=== PATIENT | male | born 1980 | race Caucasian/White ===

== ENCOUNTER 2018-02-22 13:29 | Emergency (ER) | payer OTHER, SELFPAY ==
[2018-02-22 13:30] VITALS: BP 133/83; PULSE 77; RESP 14; TEMP 36.8; O2SAT 95; BMI 30.4
--- NOTE | 2018-02-22 13:54 | ED.VISSUMM ---
- ER Visit Summary Date of Service: 02/22/18 Chief Complaint: [] Foreign body right ear History of Present Illness: The patient is a 37 M [] placed a piece of paper as an ear plug in his right ear he could not get down he presents complaining of foreign body today no pain no other complaints Physical Examination: [] Exam he has an obvious white foreign body consisting of paper in the right ear that was removed without difficulty the canal and the TM were unremarkable and the rest of his exam was unremarkable he felt better afterwards Test Results: [] Emergency Department Course and Treatment: [] Routine instructions given for the above follow-up with Treatment Plan: [] Disposition: [] Home stable Impression: [] Foreign body consisting of paper removed from right ear This note was generated with [employer] dictation software. It may contain incorrect words, spelling, and punctuation that were not noted in review of the chart prior to signing ED Disposition - Plan for ED Patient: Chief Complaint: Foreign Body Referrals: Roland Monreal MD [Primary Care Provider] -
--- NOTE | 2018-02-22 13:55 | ED.DEP ---
ED Disposition - Plan for ED Patient: Chief Complaint: Foreign Body Instructions: Foreign Object in the Ear or Nose Referrals: Roland Monreal MD [Primary Care Provider] -
== END 2018-02-22 14:22 | disposition home or self-care (01) ==
LOC: ED 14:22
PROVIDERS: Emergency Provider Emergency Medicine; Family Provider Family Medicine; PCP Family Medicine
DX: T16.1XXA Foreign body in right ear, initial encounter (principal); X58.XXXA Exposure to other specified factors, initial encounter; Y93.9 Activity, unspecified; Y92.9 Unspecified place or not applicable
CPT/HCPCS: 99282

== ENCOUNTER 2019-04-22 12:52 | Emergency (ER) | payer OTHER, SELFPAY ==
[2019-04-22 12:53] VITALS: BP 163/100; PULSE 71; RESP 16; TEMP 36.8; O2SAT 98; BMI 28.7
--- NOTE | 2019-04-22 14:09 | ED.VISSUMM ---
- ER Visit Summary Date of Service: 04/22/19 Chief Complaint: Right lower facial and lip laceration. History of Present Illness: The patient is a 38 M was cutting a tree that was down. When he cut it the tree sprang up and hit him on the right side of his lower face causing a laceration of the skin between his lip and chin and going through and through the inside of the mouth mucosa. He denies any LOC. He states he did not injure his dentition. He denies any other injuries. His tetanus is up-to-date within the last several years. Physical Examination: Well-appearing young male. Vital signs are stable afebrile. HEENT exam laceration 3 cm in the right lower face goes through into the right lower lip. Dentition is intact. No malocclusion. No intraoral swelling or significant tenderness or deformity. No malocclusion. I had him run his tongue across his teeth and he does not find any abnormalities. I am not tender. Trachea midline. Lungs clear to auscultation. Heart regular rhythm no murmur. Abdomen is soft and nontender. Extremities moves all 4. Neurovascular intact. Nontender. Neurologically he is awake and alert with no focal motor deficits. GCS is 15. Test Results: None Emergency Department Course and Treatment: Procedure note: Through and through laceration from right lower face and to right lower lip inner mucosal surface. Locally anesthetized with LET and then subcu lidocaine. Explored. Copiously irrigated and clean. Closed using # 4 5-0 simple interrupted suture on the exterior surface and #4 5-0 Vicryl sutures on the inside the mouth. Patient tolerated procedure well. Treatment Plan: Suture removal in 5 to 7 days. Ice to the area. Motrin for pain. Watch for any signs of infection. Disposition: Discharge Impression: Right lower facial laceration through and through into the right lower lip ( 2 layer closure closure) Multiple layer repair by ER This note was generated with [employer] dictation software. It may contain incorrect words, spelling, and punctuation that were not noted in review of the chart prior to signing ED Disposition - Plan for ED Patient: Disposition: Home or Assisted Living Instructions: LACERATION, Face (Suture or Tape) Referrals: Dimas Dumont MD [STAFF PHYSICIAN] - 7 Days for suture removal Additional Instructions: Ice to your face. Tylenol and Motrin for pain. Keep wounds clean. Suture removal in 5 to 7 days.
--- NOTE | 2019-04-22 14:16 | ED.DEP ---
ED Disposition - Plan for ED Patient: Disposition: Home or Assisted Living Instructions: LACERATION, Face (Suture or Tape) Prescriptions: Penicillin Vk [Pen-Vee K , V-Cillin K] 250 mg PO 4X/DAY #20 tab Prescription Printed Referrals: Dimas Dumont MD [STAFF PHYSICIAN] - 7 Days for suture removal Additional Instructions: Ice to your face. Tylenol and Motrin for pain. Keep wounds clean. Suture removal in 5 to 7 days.
[2019-04-22] MEDS: Lidocaine/Epi/Tetracaine 50 ML 1 APPLIC TOPICAL (15:12)
== END 2019-04-22 15:12 | disposition home or self-care (01) ==
PROVIDERS: Emergency Provider Emergency Medicine
DX: S01.511A Laceration without foreign body of lip, initial encounter (principal); W26.8XXA Contact with other sharp object(s), not elsewhere classified, initial encounter; Y93.89 Activity, other specified; Y92.89 Other specified places as the place of occurrence of the external cause; Y99.9 Unspecified external cause status
CPT/HCPCS: 12052; 99283